=== PATIENT | female | born 1945 | race Caucasian/White ===

== ENCOUNTER → 2016-12-18 | Outpatient (CLI) | payer MEDICARE ==
[~2016-12-18] MED LIST: BUPR150T6 PO; BUPR75TA6 PO; ESOM40CA PO; LEVO200T5 PO; LOSA100T6 PO; LOSA25TA4 PO; MELO7.5T29 PO; PARO40TA61 PO; PRAV40TA2 PO; PROP40TA PO; ROPI1TAB2 PO; [UNRECOGNIZED DRUG - CODE] PO
--- NOTE | 2016-12-18 13:21 | KCIC ---
Examination: MRI of the right shoulder without contrast HISTORY: History of right shoulder pain, rotator cuff tear COMPARISON: None available Technique: Multiplanar, multisequence MR imaging of the right shoulder without contrast FINDINGS: The long head the biceps tendon within the bicipital groove. The attachment of the long head of the biceps tendon to superior labral anchor grossly appears intact. There is increased signal in the intra-articular portion of the biceps tendon likely tendinosis. There is full-thickness tear of the supraspinatus and infraspinatus tendon with tendon retraction by up to 3.8 cm medially. The posterior most fibers of the infraspinatus tendon may be intact. There is tendinosis of the subscapularis, supraspinatus, infraspinatus tendons. There is increased signal identified in superior fibers of the subscapularis tendon likely partial tear. There is diffuse increased signal noted throughout the labrum likely degeneration. There is extension of contrast in the subacromial subdeltoid bursa. There is a focus of 8mm low T2 signal identified in the posterior joint space posterior to the posterior glenoid, best visualized on series 3 image #13 could be a loose body or synovial prominence. Prior surgical changes of rotator cuff repair identified. The visualized acromion is type II. There is moderate degenerative changes identified in the acromion clavicular joint. There is widening of the acromioclavicular joint likely postsurgical changes. There is fatty infiltration of the subscapularis, supraspinatus, infraspinatus muscles. There is mild superior translation of the humerus in relation to glenoid. Moderate degenerative changes glenohumeral joint. IMPRESSION: 1. Full-thickness tear of rotator cuff including supraspinatus and infraspinatus tendons with tendon retraction. The posterior most fibers of the infraspinatus tendon may be intact. 2. There is increased signal identified in the subscapularis tendon likely partial tear within the superior portion. 3. Focus of 8mm low T2 signal identified in the posterior joint space posterior to the posterior glenoid, best visualized on series 3 image #13 could be a loose body or synovial prominence. 4. Prior surgical change of rotator cuff repair. 5. Increased signal noted throughout the labrum likely secondary to degeneration. Electronically signed by: Jhony Peralta MD (12/18/2016 1:17 PM) [id number]
== END | disposition home or self-care (01) ==
LOC: KCIC MRI 11:24
PROVIDERS: ATTEND Orthopaedic Surgery Sports Medicine
DX: M75.101 Unspecified rotator cuff tear or rupture of right shoulder, not specified as traumatic (principal)
CPT/HCPCS: 73221